=== PATIENT | male | born 1935 | race Caucasian/White ===

== ENCOUNTER 2017-07-29 13:33 | Emergency (ER) | payer MEDICARE, BC ==
[2016-02-19 13:44] VITALS: BMI 17.6
[~2017-07-29 13:33] MED LIST: FLOMAX0.4 MG PO; OMEPRAZOLE40 MG PO; PRILOSEC20 MG PO
[2017-07-29 14:33] LABS: BASOPHILS 0.2 % (0-2); EOSINOPHILS 0.1 % (0-7); HEMATOCRIT 34.9 % (42.0-54.0); HEMOGLOBIN 12.1 g/dL (13.5-17.5); IMMATURE GRANULOCYTES 0.3 % (0-5); LYMPHOCYTES 7.3 % (15-50); MCH 34.1 pg (26.0-34.0); MCHC 34.7 g/dL (31.0-37.0); MCV 98.3 fL (80.0-100.0); MEAN PLATELET VOLUME 10.3 fL (7.4-10.4); NEUTROPHILS 81.1 % (40-80); RBC 3.55 10x6/uL (4.20-6.10); RDW 13.1 % (11.5-14.5); WBC 12.4 10x3/uL (4.8-10.8)
[2017-07-29 14:34] LABS: PLATELET COUNT 141 10x3/uL (130-400)
[2017-07-29 14:48] LABS: APTT 36.8 SECONDS (22.8-39.4); INR 1.15 (0.85-1.17); PROTIME 14.6 SECONDS (11.6-15.0)
[2017-07-29 14:55] LABS: ALKALINE PHOSPHATASE 73 U/L (46-116); ALT (SGPT) 22 U/L (10-68); BILIRUBIN - TOTAL 0.91 mg/dL (0.2-1.3); CALCIUM 8.9 mg/dL (8.5-10.1); CARBON DIOXIDE 27.3 mmol/L (21.0-32.0); CHLORIDE - SERUM 98 mmol/L (98-107); POTASSIUM - SERUM 3.7 mmol/L (3.5-5.1); PROTEIN - SERUM 6.5 g/dL (6.4-8.2); SODIUM 135 mmol/L (136-145); UREA NITROGEN 23 mg/dL (7-18); eGFR NON AFRICAN AMERICAN 76 mL/min (90-120)
[2017-07-29 14:58] LABS: ALBUMIN 3.4 g/dL (3.4-5.0); CALC OSMOLALITY 277 mosm/kg (275-300); GLUCOSE 169 mg/dL (74-106)
[2017-07-29 17:32] LABS: APPEARANCE CLEAR (CLEAR); BILIRUBIN NEGATIVE (NEGATIVE); COLOR YELLOW (YELLOW); GLUCOSE NEGATIVE (NEGATIVE); KETONE NEGATIVE (NEGATIVE); LEUKOCYTE ESTERASE NEGATIVE (NEGATIVE); NITRITE NEGATIVE (NEGATIVE); PROTEIN NEGATIVE (NEGATIVE); UROBILINOGEN NORMAL (NORMAL)
== END 2017-07-29 19:14 | disposition other institution (70) ==
LOC: D.ER 13:33
PROVIDERS: Emergency Medicine
DX: I74.8 Embolism and thrombosis of other arteries (principal); I73.9 Peripheral vascular disease, unspecified; F17.200 Nicotine dependence, unspecified, uncomplicated; M79.605 Pain in left leg; M79.604 Pain in right leg

== ENCOUNTER 2017-09-23 11:09 | Emergency (ER) | payer MEDICARE, BC ==
[2016-02-19 13:44] VITALS: BMI 17.6
[2017-09-23] MEDS ORDERED: ULTRAM50 MG PO (16:56)
[2017-09-23] MEDS ORDERED: HYDROCODON-ACE1 EAC7 PO (16:57)
[2017-09-23] MEDS ORDERED: NAPROSYN500 MG PO (16:58)
[2017-09-23] MEDS ORDERED: FLOMAX0.4 MG PO (16:58)
== END 2017-09-23 12:26 | disposition home or self-care (01) ==
LOC: D.ER 11:09
DX: M54.5 Low back pain (principal)

== ENCOUNTER 2017-09-23 16:20 | Inpatient (IN) | payer MEDICARE, BC ==
[~2017-09-23] VITALS: Ht 170.2 cm; Wt 44.5 kg
[2017-09-23] MEDS ORDERED: ULTRAM50 MG PO (16:56)
[2017-09-23] MEDS ORDERED: HYDROCODON-ACE1 EAC7 PO (16:57)
[2017-09-23] MEDS ORDERED: FLOMAX0.4 MG PO (16:58)
[2017-09-23] MEDS ORDERED: NAPROSYN500 MG PO (16:58)
[2017-09-23 17:00] VITALS: BP 121/66; BMI 15.5
[2017-09-23 17:05] LABS: BASOPHILS 0.1 % (0-2); EOSINOPHILS 0 % (0-7); HEMATOCRIT 39.5 % (42.0-54.0); HEMOGLOBIN 13.2 g/dL (13.5-17.5); IMMATURE GRANULOCYTES 0.3 % (0-5); LYMPHOCYTES 3.3 % (15-50); MCH 32.8 pg (26.0-34.0); MCHC 33.4 g/dL (31.0-37.0); MEAN PLATELET VOLUME 11.2 fL (7.4-10.4); MONOCYTES 1.8 % (2-11); NEUTROPHILS 94.5 % (40-80); RBC 4.03 10x6/uL (4.20-6.10); RDW 15.6 % (11.5-14.5); WBC 11.3 10x3/uL (4.8-10.8)
[2017-09-23 17:15] LABS: PLATELET COUNT 204 10x3/uL (130-400)
[2017-09-23 18:19] LABS: ERYTHROCYTE SEDIMENTATION RATE 14 mm/hr (0-20)
[2017-09-23 18:49] LABS: ALBUMIN 3.7 g/dL (3.4-5.0); ANION GAP 16.7 mmol/L (8-16); BILIRUBIN - TOTAL 1.04 mg/dL (0.2-1.3); CALCIUM 9.1 mg/dL (8.5-10.1); CREATININE - SERUM 1.1 mg/dL (0.6-1.3); POTASSIUM - SERUM 3.7 mmol/L (3.5-5.1); PROTEIN - SERUM 6.7 g/dL (6.4-8.2); THYROID STIMULATING HORMONE 1.48 uIU/mL (0.36-3.74)
[2017-09-23 20:00] VITALS: BP 134/70
--- NOTE | 2017-09-23 20:44 | NUR ---
PATIENT RESTING IN BED AND DENIES NEEDS AT THIS TIME. RODRICK ALEXANDER SITED THE PATIENT'S IV WITH A 20G IN THE RIGHT UPPER ARM ON THE FIRST ATTEMPT. BED IN LOWEST POSITION AND CALL LIGHT WITHIN REACH. ENCOURAGED THE PATIENT TO CALL IF HE HAS NEEDS.
[2017-09-24] VITALS: BP 146/72
[2017-09-24 04:00] VITALS: BP 140/68
--- NOTE | 2017-09-24 04:00 | NUR ---
SPOKE WITH ANGELA PNEUMATIC DRUM SANDER ABOUT PULLING 8140 [address]RIUM
[2017-09-24 06:03] LABS: BASOPHILS 0 % (0-2); EOSINOPHILS 0.1 % (0-7); HEMATOCRIT 36.5 % (42.0-54.0); HEMOGLOBIN 12.3 g/dL (13.5-17.5); IMMATURE GRANULOCYTES 0.3 % (0-5); LYMPHOCYTES 18.3 % (15-50); MCH 32.8 pg (26.0-34.0); MCHC 33.7 g/dL (31.0-37.0); MCV 97.3 fL (80.0-100.0); MEAN PLATELET VOLUME 11.3 fL (7.4-10.4); MONOCYTES 11.3 % (2-11); PLATELET COUNT 207 10x3/uL (130-400); RBC 3.75 10x6/uL (4.20-6.10); RDW 15.5 % (11.5-14.5); WBC 9.4 10x3/uL (4.8-10.8)
[2017-09-24 06:12] LABS: CALC OSMOLALITY 293 mosm/kg (275-300); CARBON DIOXIDE 28.9 mmol/L (21.0-32.0); CHLORIDE - SERUM 104 mmol/L (98-107); CREATININE - SERUM 0.9 mg/dL (0.6-1.3); POTASSIUM - SERUM 3.5 mmol/L (3.5-5.1); SODIUM 141 mmol/L (136-145); UREA NITROGEN 50 mg/dL (7-18); eGFR NON AFRICAN AMERICAN 85 mL/min (90-120)
[2017-09-24 06:23] LABS: GLUCOSE 104 mg/dL (74-106)
[2017-09-24 08:36] VITALS: BP 142/67
--- NOTE | 2017-09-24 10:38 | NUR ---
PT CONFUSED AOX1 RESP EVEN AND NONLABORED PT DENIES NEEDS AT THIS TIME IV TO LEFT FOREARM PATENT AND INTACT AT THIS TIME SRX2 BED AT LOWEST SETTING CALL LIGHT WITHIN REACH WILL CONTINUE TO MONITOR
--- NOTE | 2017-09-24 11:02 | NUR ---
DR. SAVAGE REVIEWED FILMS, RECORD, AND PATIENT SYMPTOMS AND IS SCHEDULING PATIENT FOR A PROCEDURE ON FRIDAY AND VOICED TO PCP, CM, AND MYSELF TO CANCEL MRI THAT WAS ORDERED BY DR. LYON. DR. LYON NOTIFIED OF DR. SAVAGE REQUEST AND STATES IF HE FEELS COMFORTABLE WITH THE CT RESULTS THEN HE IS FINE CANCELLING MRI.
[2017-09-24 12:46] VITALS: Ht 170.2 cm; Wt 44.5 kg
--- NOTE | 2017-09-24 14:05 | NUR ---
Rehab Prescreening Consult recieved and the chart has been reviewed. He is scheduled for a Khypoplasty on Friday. Rehab will follow to see how he progresses with therapy post-op and medical necessity to meet criteria for IRF. Discussed with the CM Silva Harris. Maryjane Purvis RN Clinical Liaison, Rehab
[2017-09-24 14:20] VITALS: BP 119/54
[2017-09-24 16:23] VITALS: BP 128/55
--- NOTE | 2017-09-24 18:11 | NUR ---
OT NOTE: PT COMPLETED GROOMING AND HYGIENE TASK WITH MIN A/CGA. PT REQUIRES CUES FOR INCREASED SAFETY. THANK YOU, CAIN ROJAS/Hamilton
[2017-09-24 20:00] VITALS: BP 113/52
--- NOTE | 2017-09-24 22:02 | NUR ---
REC'D LYING IN BED. ALERT AND ORIENTED X2. DENIED PAIN AT THIS TIME. DENIED NEEDS AT THIS TIME. INSTRUCTED TO CALL IF NEEDED ANYTHING, VERBALIZED UNDERSTANDING. BED LOW, LOCKED CALL LIGHT IN REACH, ALARM ON.
[2017-09-25] VITALS: BP 138/62
--- NOTE | 2017-09-25 02:00 | NUR ---
PT IN BED WITH NO DISTRESS. RESPIRATIONS EVEN AND UNLABORED. SIDE RAILS X 2. BED LOW. CALL LIGHT IN REACH.
[2017-09-25 04:50] LABS: BASOPHILS 0.1 % (0-2); EOSINOPHILS 0.4 % (0-7); HEMATOCRIT 38.2 % (42.0-54.0); HEMOGLOBIN 12.9 g/dL (13.5-17.5); IMMATURE GRANULOCYTES 0.3 % (0-5); LYMPHOCYTES 14.3 % (15-50); MCH 32.9 pg (26.0-34.0); MCHC 33.8 g/dL (31.0-37.0); MCV 97.4 fL (80.0-100.0); MEAN PLATELET VOLUME 11.7 fL (7.4-10.4); NEUTROPHILS 76.9 % (40-80); PLATELET COUNT 211 10x3/uL (130-400); RBC 3.92 10x6/uL (4.20-6.10); RDW 15.5 % (11.5-14.5); WBC 11.7 10x3/uL (4.8-10.8)
[2017-09-25 05:09] LABS: CALC OSMOLALITY 294 mosm/kg (275-300); CALCIUM 8.8 mg/dL (8.5-10.1); CHLORIDE - SERUM 106 mmol/L (98-107); CREATININE - SERUM 0.9 mg/dL (0.6-1.3); GLUCOSE 104 mg/dL (74-106); POTASSIUM - SERUM 3.2 mmol/L (3.5-5.1); SODIUM 142 mmol/L (136-145); UREA NITROGEN 46 mg/dL (7-18); eGFR NON AFRICAN AMERICAN 85 mL/min (90-120)
--- NOTE | 2017-09-25 08:00 | NUR ---
PATIENT IS RESTING IN BED WITH EYES CLOSED. AWAKENS TO VERBAL STIMULI. PATIENT IS ALERT AND ORIENTED X4. PATIENT IS [place] AND WEARS A HEARING AID. NO COMPLAINTS OF PAIN AT PRESENT TIME. ASSESSMENT COMPLETED. SEE FLOWSHEET FOR ANY DETAILS. PATIENT DENIES ANY NEEDS AT PRESENT TIME. CALL LIGHT IN PATIENT'S REACH. WILL MONITOR PATIENT FOR ANY NEEDS.
[2017-09-25 09:07] VITALS: BP 159/79
--- NOTE | 2017-09-25 11:50 | NUR ---
OT NOTE: PT LIEING IN BED ON SIDE. PT REQUESTED TO REST. FRIEND AT BEDSIDE. REPORTED THAT ALL PT NEEDS IS CONTINUAL FOOD AND DRINK.. HE STATES THAT PT JUST NEEDS TO REST, DOESNT NEED TO GET UP DUE TO SURGERY TOMORROW.. HE DID REPORT THAT PTS SON IS COMING IN TONIGHT FROM [place]. WILL ATTEMPT EXS IN PM
[2017-09-25 12:51] VITALS: BP 148/64
--- NOTE | 2017-09-25 14:27 | NUR ---
PATIENT RESTING ON HIS BACK. EYES ARE CLOSED. SNORING NOTED. NO S/S OF DISTRESS NOTED. CALL LIGHT IN PATIENT'S REACH. SCD'S IN PLACE TO PATIENT'S BILATERAL LOWER EXTREMITIES. WILL CONTINUE TO MONITOR PATIENT FOR ANY NEEDS.
[2017-09-25 17:07] VITALS: BP 145/64
--- NOTE | 2017-09-25 19:15 | NUR ---
RECEIVED CARE FROM DAY NURSE. PT LYING IN BED ON SIDE. RESP EVEN AND UNLABORED. MARLYN ALARM IN PLACE. CALL LIGHT AT SIDE.
[2017-09-25 20:00] VITALS: BP 105/55
[2017-09-26] VITALS (12 sets, daily range): BP systolic 111–150; BP diastolic 57–81
[2017-09-26 01:20] LABS: APPEARANCE CLEAR (CLEAR); BILIRUBIN NEGATIVE (NEGATIVE); COLOR YELLOW (YELLOW); GLUCOSE NEGATIVE (NEGATIVE); KETONE NEGATIVE (NEGATIVE); NITRITE NEGATIVE (NEGATIVE); PROTEIN NEGATIVE (NEGATIVE); UROBILINOGEN NORMAL (NORMAL)
--- NOTE | 2017-09-26 03:09 | NUR ---
EYES CLOSED RESPIRATIONS WITH EASE AND UNLABORED. SR UP X2 CALL LIGHT WITHIN REACH.
[2017-09-26 06:35] LABS: BASOPHILS 0.1 % (0-2); EOSINOPHILS 0.4 % (0-7); HEMOGLOBIN 12.1 g/dL (13.5-17.5); IMMATURE GRANULOCYTES 0.3 % (0-5); LYMPHOCYTES 12.2 % (15-50); MCH 33.1 pg (26.0-34.0); MCHC 33.6 g/dL (31.0-37.0); MCV 98.4 fL (80.0-100.0); MEAN PLATELET VOLUME 11.7 fL (7.4-10.4); MONOCYTES 9.2 % (2-11); NEUTROPHILS 77.8 % (40-80); PLATELET COUNT 192 10x3/uL (130-400); RBC 3.66 10x6/uL (4.20-6.10); RDW 15.6 % (11.5-14.5); WBC 13.6 10x3/uL (4.8-10.8)
[2017-09-26 06:50] LABS: CALC OSMOLALITY 294 mosm/kg (275-300); CALCIUM 8.7 mg/dL (8.5-10.1); CARBON DIOXIDE 27.1 mmol/L (21.0-32.0); CHLORIDE - SERUM 108 mmol/L (98-107); CREATININE - SERUM 0.7 mg/dL (0.6-1.3); GLUCOSE 109 mg/dL (74-106); POTASSIUM - SERUM 3.6 mmol/L (3.5-5.1); SODIUM 143 mmol/L (136-145); UREA NITROGEN 37 mg/dL (7-18); eGFR NON AFRICAN AMERICAN > 90 mL/min (90-120)
--- NOTE | 2017-09-26 07:44 | NUR ---
AWAKE AND ALERT. ORIENTED TO SELF. LUNGS ARE CLEAR BILATERALLY, NO COUGH NOTED. SKIN IS INTACT WITHOUT REDNESS. SL TO RIGHT UPPER ARM PATNET WITHOUT REDNESS AT INSERTION SITE. DENIES NEEDS.
--- NOTE | 2017-09-26 09:03 | NUR ---
Patient Name: GALINA NEVES Admission Status: Urgent Accout number: [id number] Admission Date: 09-23-2017 : 1933 Admission Diagnosis:DORSALGIA, UNSPECIFIED Attending: ANABELLA HERZOG Current LOS: 3 Anticipated DC Date: Planned Disposition: Inpatient Rehab Primary Insurance: MEDICARE A & B Discharge Planning Comments: CM met with patient's son, Holly to assess discharge planning needs. Holly's son stated that his dad has been independent with his ADL's prior to this hospitalization. He has fallen a few times, and would like him to do inpatient rehab to get stronger prior to going home. Patient has stairs in his home. He has a wheelchair, shower chair, and cane. CM will continue to follow and assist with discharge planning needs. PCP: Emmanuel Holly (son) [phone] Jefry Neves (son) [phone] () [phone] Optical Brightener Maker Helper: Ana Luisa Harris * Is the patient Alert and Oriented? Yes 0 * How many steps to enter\exit or inside your home? 10 0 * PCP EMMANUEL 0 * Pharmacy [facility] 0 * Preadmission Environment Home Alone 0 * ADLs Independent 0 * Equipment Cane Shower Chair Wheelchair 0 * List name and contact numbers for known caregivers / representatives who currently or will assist patient after discharge: HOLLY (SON) 0 * Community resources currently utilized None 0 * Additional services required to return to the preadmission environment? Yes 0 * Can the patient safely return to the preadmission environment? No 0 * Has this patient been hospitalized within the prior 30 days at any hospital? No 0 Grand Total: 0
--- NOTE | 2017-09-26 10:00 | NUR ---
RESTING QUIETLY WITH EYES CLOSED. SON AT BEDSIDE.
--- NOTE | 2017-09-26 11:00 | NUR ---
INCONTINENT OF URINE AND SMALL AMOUNT OF STOOL. SKIN CARE PER STAFF. LINENS CHANGED. NO NEEDS NOTED.
--- NOTE | 2017-09-26 11:44 | NUR ---
OFF UNIT VIA BED FOR SURGERY.
--- NOTE | 2017-09-26 12:28 | NUR ---
NUTRITION F/U CHART REVIEWED. PT OOR FOR PROCEDURE. HAS BEEN TOLERATING REG DIET WITH ENSURE PRIOR TO CURRENT NPO STATUS. WILL PROVIDE DIET AND ENSURE WHEN RESUMED, MONITOR PO INTAKE. RD FOLLOWING
--- NOTE | 2017-09-26 14:50 | NUR ---
RETURNED FROM SURGERY. DRESSING TO MID BACK DRY AND INTACT. FAMILY IN ROOM. DENIES NEEDS.
--- NOTE | 2017-09-26 18:27 | NUR ---
RESTING WITH EYES CLOSED. VSS. SON HERE. NO NEEDS NOTED.
--- NOTE | 2017-09-26 21:10 | NUR ---
SNACK APPLE SAUCE GIVEN.
--- NOTE | 2017-09-26 23:28 | NUR ---
REST QUIETLY IN BED.CALL LIGHT IN REACH.
--- NOTE | 2017-09-27 01:32 | NUR ---
REST IN BED, BED LOW, CALL LIGHT IN REACH.
--- NOTE | 2017-09-27 02:37 | NUR ---
ASSESSED, PT IS RESTING QUIET IN BED WITH BED ALARM IN PLACE. HE IS AWAKE AND HAS TAKEN HIS GOWN OFF BUT DID NOT WANT TO PUT IT BACK ON. COVERED WITH A SHEET. THE BED IS LOW, RAILS UP X'S 2 WITH THE CALL LIGHT AT HAND.
[2017-09-27 04:00] VITALS: BP 154/87
--- NOTE | 2017-09-27 04:36 | NUR ---
REST IN BED QUIETLY, EYE CLOSE, BED LOW.
[2017-09-27 05:13] LABS: BASOPHILS 0.1 % (0-2); EOSINOPHILS 0 % (0-7); HEMOGLOBIN 11.2 g/dL (13.5-17.5); IMMATURE GRANULOCYTES 0.3 % (0-5); LYMPHOCYTES 5.9 % (15-50); MCH 32.8 pg (26.0-34.0); MCHC 32.9 g/dL (31.0-37.0); MCV 99.7 fL (80.0-100.0); MEAN PLATELET VOLUME 11.6 fL (7.4-10.4); NEUTROPHILS 86.7 % (40-80); PLATELET COUNT 180 10x3/uL (130-400); RBC 3.41 10x6/uL (4.20-6.10); RDW 15.7 % (11.5-14.5); WBC 14.9 10x3/uL (4.8-10.8)
[2017-09-27 05:29] LABS: CALC OSMOLALITY 298 mosm/kg (275-300); CALCIUM 8.6 mg/dL (8.5-10.1); CARBON DIOXIDE 24.6 mmol/L (21.0-32.0); CHLORIDE - SERUM 111 mmol/L (98-107); GLUCOSE 130 mg/dL (74-106); SODIUM 145 mmol/L (136-145); UREA NITROGEN 35 mg/dL (7-18)
[2017-09-27 05:37] LABS: CREATININE - SERUM 0.5 mg/dL (0.6-1.3); POTASSIUM - SERUM 4.3 mmol/L (3.5-5.1); eGFR NON AFRICAN AMERICAN > 90 mL/min (90-120)
--- NOTE | 2017-09-27 08:12 | NUR ---
AWAKE AND ALERT. ORIENTED TO SELF ONLY. ATTEMPTS TO REORIENT WITH ONLY SHORT TERM SUCCESS. LUNGS ARE CLEAR BILATERALLY, NO COUGH NOTED. SKIN IS INTACT WITHOUT REDNESS EXCEPT SMALL INCISION WITH DRY DRESSING TO LOWER BACK. IV TO RIGHT UPPER ARM IS PATNET WITHOUT REDNESS AT INSERTION SITE. NO NEEDS NOTED.
[2017-09-27 09:38] VITALS: BP 123/66
--- NOTE | 2017-09-27 10:44 | NUR ---
INCONTINENT OF SMALL AMOUNT OF STOOL. SKIN CARE PER STAFF. LINENS CHANGED.
--- NOTE | 2017-09-27 13:00 | NUR ---
ATE ABOUT 25% OF LUNCH WITH STAFF ASSIST.
[2017-09-27 13:41] VITALS: BP 126/64
--- NOTE | 2017-09-27 14:44 | NUR ---
INCONTINENT OF URINE. SKIN CARE PER STAFF. LINENS CHANGED. REPOSTIONED IN BED FOR COMFORT.
[2017-09-27 15:51] VITALS: BP 124/68
--- NOTE | 2017-09-27 18:38 | NUR ---
ASSISTED WITH SUPPER PER STAFF. ATE ABOUT 25%. DENIES NEEDS. NO CHANGES NOTED.
--- NOTE | 2017-09-27 19:17 | NUR ---
LATE ENTRY 1400 TC TO REHAB SCREENERISAIAH. SHE WILL REVIEW PATIENT'S THERAPY NOTES AND START HIS SCREEN. SHE WILL ADVISE CM ON FRIDAY REGARDING ADMISSION TO [facility].
--- NOTE | 2017-09-27 19:36 | NUR ---
PT IS LYING IN BED TRYING TO USE URINAL, ASKED PT IF ASSISTANCE WAS NEEDED AND PT STATED NO, CONTINUED TO HELP PT WITH URINAL AND CAN HEAR PT BREATHING, LISTENED TO PT. PT AHS EXPIRATORY WHEEZES AND CRACKLING WITH INHALATION, ENCOURAGED PT TO COUGH, REPOSITIONED PT AND BREATHING SOUNDED BETTER, NO OTHER SIGNS OF DISTRESS AT THIS TIME, CONTINUE WITH PLAN PF CARE
[2017-09-27 20:00] VITALS: BP 140/68
--- NOTE | 2017-09-27 23:33 | NUR ---
RESTLESS, DENIES NEEDS, NO DISTRESS NOTED, CALL LIGHT IN REACH, WILL CONTINUE TO MONITOR
[2017-09-28 04:00] VITALS: BP 132/66
[2017-09-28 05:28] LABS: BASOPHILS 0.1 % (0-2); EOSINOPHILS 0.1 % (0-7); HEMATOCRIT 31.9 % (42.0-54.0); HEMOGLOBIN 10.5 g/dL (13.5-17.5); IMMATURE GRANULOCYTES 0.3 % (0-5); LYMPHOCYTES 9.7 % (15-50); MCH 32.2 pg (26.0-34.0); MCHC 32.9 g/dL (31.0-37.0); MCV 97.9 fL (80.0-100.0); MEAN PLATELET VOLUME 11.8 fL (7.4-10.4); MONOCYTES 9.6 % (2-11); NEUTROPHILS 80.2 % (40-80); PLATELET COUNT 188 10x3/uL (130-400); RBC 3.26 10x6/uL (4.20-6.10); RDW 15.5 % (11.5-14.5); WBC 14.4 10x3/uL (4.8-10.8)
[2017-09-28 05:57] LABS: CALC OSMOLALITY 302 mosm/kg (275-300); CALCIUM 8.3 mg/dL (8.5-10.1); CARBON DIOXIDE 25.7 mmol/L (21.0-32.0); CHLORIDE - SERUM 114 mmol/L (98-107); CREATININE - SERUM 0.7 mg/dL (0.6-1.3); GLUCOSE 111 mg/dL (74-106); POTASSIUM - SERUM 4.4 mmol/L (3.5-5.1); SODIUM 148 mmol/L (136-145); UREA NITROGEN 34 mg/dL (7-18); eGFR NON AFRICAN AMERICAN > 90 mL/min (90-120)
--- NOTE | 2017-09-28 08:00 | NUR ---
AROUSES TO VERBAL STIMULATION. ORIENTED TO SELF ONLY. LUNGS HAVE FAINT CRACKLES THROUGHOUT LUNG VILLA OCCASSIONAL DRY COUGH NOTED. SKIN IS INTACT WITHOUT REDNESS. SL TO RIGHT UPPER ARM IS PATNET WITHOUT REDNESS AT INSERTION SITE. NO NEEDS NOTED. HEARING AID REPLACED IN RIGHT EAR.
[2017-09-28 08:15] VITALS: BP 126/61
--- NOTE | 2017-09-28 09:45 | NUR ---
AMBULATED IN HALLWAY WITH PT. NO C/O INCREASED PAIN WITH ACTIVITY.
[2017-09-28 12:41] VITALS: BP 135/52
--- NOTE | 2017-09-28 13:37 | NUR ---
PAMELLA SPOKE WITH ISAIAH THE REHAB SCREENER ON FRIDAY. SHE STATED SHE WILL BE FOLLOWING UP ON THIS PATIENT. AWAIT COMPLETION OF HIS SCREEN. PLAN FOR ADMISSION TO ACUTE REHAB TODAY. DR ISBELL AND DR BARR SPOKE W/ PAMELLA ON THEIR. ADVISED THEM WE ARE EXPECTING DISCHARGE TO ACUTE REHAB TODAY. NO UPDATED REHAB NOTE AT THIS TIME.
[2017-09-28] MEDS ORDERED: STADOL IM (14:29)
[2017-09-28] MEDS ORDERED: HYDROCODON-ACE1 EAC7 PO (14:31)
[2017-09-28] MEDS ORDERED: LIBRIUM25 MG PO (14:31)
[2017-09-28] MEDS ORDERED: ZOFRAN4 MG PO (14:32)
--- NOTE | 2017-09-28 15:46 | NUR ---
PATIENT HAS BEEN ACCEPTED TO [facility] THIS PM PER ISAIAH. CM ADVISED PRIMARY NURSE, YENNIFER.
--- NOTE | 2017-09-28 15:59 | NUR ---
REPORT CALLED TO ISI STINSON ON REHAB. PATIENT WILL D/C TO REHAB VIA WC TO ROOM. 1104.
--- NOTE | 2017-09-28 16:23 | NUR ---
TRANSFERRED TO ROOM 1109 VIA . GLASSES AND COMPLETE HEARING AID WENT WITH ACOSTA.
[2017-09-29] MEDS ORDERED: LEVAQUIN500 MG PO (14:25)
[2017-09-29] MEDS ORDERED: IPRAT-ALBUT 0.5-3 ML UPD (14:27)
[2017-09-29] MEDS ORDERED: FLORAJEN3 CAPS460 MG PO (14:28)
== END 2017-09-28 16:23 | DRG 515 ==
LOC: D.MS 16:20
PROVIDERS: Emergency Medicine; Neurological Surgery; ADMIT Family Medicine
PROC: 0QU03JZ Supplement Lumbar Vertebra with Synthetic Substitute, Percutaneous Approach (ICD-10-PCS; 2017-09-26)
PROC: 0QS03ZZ Reposition Lumbar Vertebra, Percutaneous Approach (ICD-10-PCS; principal; 2017-09-26 10:50)
DX: S32.019A Unspecified fracture of first lumbar vertebra, initial encounter for closed fracture (principal); G93.41 Metabolic encephalopathy; R53.2 Functional quadriplegia; Z68.1 Body mass index [BMI] 19.9 or less, adult; E44.0 Moderate protein-calorie malnutrition; M54.9 Dorsalgia, unspecified; S32.029A Unspecified fracture of second lumbar vertebra, initial encounter for closed fracture; R63.4 Abnormal weight loss

== ENCOUNTER 2017-09-28 16:23 | Inpatient (IN) | payer MEDICARE, BC ==
[~2017-09-28] VITALS: Ht 170.2 cm; Wt 44.5 kg
[~2017-09-28 16:23] MED LIST changes: +HYDROCODON-ACE1 EAC7 PO; +LIBRIUM25 MG PO; +NAPROSYN500 MG PO; +STADOL IM; +ULTRAM50 MG PO; +ZOFRAN4 MG PO
[2017-09-28 22:43] VITALS: BP 126/84; BMI 18.5
[2017-09-29 06:07] LABS: BASOPHILS 0.2 % (0-2); EOSINOPHILS 0.2 % (0-7); HEMATOCRIT 32.7 % (42.0-54.0); HEMOGLOBIN 10.7 g/dL (13.5-17.5); IMMATURE GRANULOCYTES 0.4 % (0-5); LYMPHOCYTES 9.8 % (15-50); MCH 32.3 pg (26.0-34.0); MCHC 32.7 g/dL (31.0-37.0); MCV 98.8 fL (80.0-100.0); MONOCYTES 9.8 % (2-11); NEUTROPHILS 79.6 % (40-80); PLATELET COUNT 199 10x3/uL (130-400); RBC 3.31 10x6/uL (4.20-6.10); RDW 15.7 % (11.5-14.5); WBC 11.5 10x3/uL (4.8-10.8)
[2017-09-29 06:15] LABS: CALC OSMOLALITY 297 mosm/kg (275-300); CALCIUM 8.7 mg/dL (8.5-10.1); CARBON DIOXIDE 23.5 mmol/L (21.0-32.0); CHLORIDE - SERUM 112 mmol/L (98-107); CREATININE - SERUM 0.6 mg/dL (0.6-1.3); GLUCOSE 88 mg/dL (74-106); SODIUM 148 mmol/L (136-145); UREA NITROGEN 26 mg/dL (7-18); eGFR NON AFRICAN AMERICAN > 90 mL/min (90-120)
[2017-09-29 06:16] LABS: POTASSIUM - SERUM 3.4 mmol/L (3.5-5.1)
[2017-09-29 09:04] VITALS: Ht 170.2 cm; Wt 44.5 kg
[2017-09-29 09:14] VITALS: BP 146/69
--- NOTE | 2017-09-29 12:07 | RHP ---
PATIENT: GALINA BAILEY MEDICAL RECORD: [id number] ACCOUNT: [id number] LOCATION:[facility]9 : 33 ADMISSION DATE: 09/28/17 REHABILITATION HISTORY AND PHYSICAL EXAMINATION POST ADMISSION PHYSICIAN EXAMINATION Post-Admission Physical Examination and History and Physical DATE OF ADMISSION: 09/28/2017 ADMITTING DIAGNOSIS: Acute metabolic encephalopathy. HISTORY OF PRESENT ILLNESS: The patient admitted to inpatient rehab for a neurological condition, acute metabolic encephalopathy. He is an 82-year-old gentleman who sustained a fall approximately 2 weeks prior to his acute hospitalization on 09/23/2017, he is admitted for intractable back pain. He had a consult per neurology and neurosurgery and underwent kyphoplasty at L1-L2 secondary to compression fractures. He has been found to be malnourished and has been receiving IV nourishment. He had AAA repair in the past. Otherwise, he was fairly healthy. He has had some intermittent problems with low back pain for years, much worse in the last couple of weeks, unable to exactly figure out when it actually happened and he has had some falls, but was not able to lift the onset of pain with any type of particular event. He had no radiation of pain to his limbs or other associated hypesthesia or weakness. He has been unable to ambulate or pursue any other activity secondary to pain and subsequently has lost a lot of weight. The time of course once again is unsure. Admitted for MRI supportive care. MRI machine was not operative initially and CT of the C-spine demonstrated new L1-L2 compression fracture with fracture of the transverse process L2 also, but unable to aid. He hopefully will be able to do inpatient rehab and return back to his prior level of care better. COMORBIDITIES: Include pain status post lumbar kyphoplasty, acute fracture, acute intractable back pain, acute fall, protein-calorie malnutrition, chronic alcohol use, tobacco use, significant scoliosis, recent weight loss, L1-L2 compression fractures, [id number] multilevel degenerative disc disease and debility. PAST MEDICAL HISTORY: Significant for abdominal aortic aneurysm, tobacco use, and alcohol use. PAST SURGICAL HISTORY: Includes an AAA repair, and kyphoplasty. ALLERGIES: No known drug allergies. CURRENT MEDICATIONS: Include Protonix 40 mg daily, Flomax 0.4 at bedtime, Zofran p.r.n. nausea and vomiting, Stadol 1 mg every 6 hours p.r.n. severe pain. He is on [place] 10/325 one tab q.6 hours p.r.n. pain and Librium 25 mg q.6 hours. HABITS: No current alcohol or tobacco use. He does have a history of tobacco and alcohol use in the past. FAMILY HISTORY: Noncontributory. SOCIAL HISTORY: The patient once again would like to return home if possible. HISTORY AND PHYSICAL [id number] GALINA BAILEY REVIEW OF SYSTEMS: GENERAL: Does complain of some weakness. HEENT: Does complain of cold, cough, or congestion. CARDIOVASCULAR: Denies any chest pain. LUNGS: Does complain of shortness of breath. PHYSICAL EXAMINATION: VITAL SIGNS: Stable. He is afebrile. GENERAL: Elderly gentleman, in no acute distress, alert upon exam. HEENT: Normocephalic and atraumatic. Mucosa moist. NECK: Supple. No lymphadenopathy. LUNGS: Coarse breath sounds bilaterally. CARDIOVASCULAR: Regular rate and rhythm. ABDOMEN: Benign. EXTREMITIES: No clubbing, cyanosis or edema. NEUROLOGIC: Seems intact supratentorial, but he does have some noted weakness on his extremities. LABORATORY DATA: His white count is 11.5, H&H 10.7 and 32.7 and platelet count is 199. Sodium 148, potassium 3.4, BUN and creatinine 26 and 0.6 and blood sugar is noted to be 88. ASSESSMENT: This is an 82-year-old gentleman admitted to the rehab with a working diagnoses of acute metabolic encephalopathy secondary to malnutrition and also lumbar compression fracture. The patient has potential to make improvement. We will institute the following multidisciplinary therapies including to, but not limited to physical, occupational, respiratory, speech, nutritional services, prosthetics and orthotics. Given his complex medical condition, risk of further medical complications, rehabilitation services cannot be provided at a low level of care such as a shelter facility. PLAN: 1. Admit to [facility] rehab for intensive inpatient therapy to include the following disciplines: A. Physical therapy to improve gait, all transfer skills and bed mobility to a modified independent level. B. Occupational therapy to improve activities of daily living to a modified independent level. C. Case management to assist with discharge planning and placement options. D. Nutrition to assist with nutritional needs. E. Rehabilitation nursing to assist in monitoring the patient's underlying medical conditions and to assist with any type of bowel or bladder management. 2. The patient's current medication and medical care will be continued. 3. The patient will be placed on standard fall precautions. 4. The patient's estimated length of stay is approximately 7-10 days. 5. Discuss this patient during care team staff meeting this week. We will have nutrition follow closely with him and hopefully get his nutritional status stable prior to going home. TRANSINT:[id number] Voice Confirmation ID: [id number] DOCUMENT ID: [id number] RITESH notes whether there has been none or any medical/functional change since admission: HISTORY AND PHYSICAL [id number] GALINA BAILEY - No change since pre-admission screen. RITESH attests patient continues to be appropriate for IRF: - Continues to be appropriate. RUKHSANA CORONA MD at 1207 CC: [id number] DICTATION DATE: 09/29/1708 MACHINE CHAIN MAKER: 09/29/17 0915 ADM IN [place] [id number] [place] [address]
[2017-09-29] MEDS ORDERED: LEVAQUIN500 MG PO (14:25)
[2017-09-29] MEDS ORDERED: IPRAT-ALBUT 0.5-3 ML UPD (14:27)
[2017-09-29] MEDS ORDERED: FLORAJEN3 CAPS460 MG PO (14:28)
== END 2017-09-29 15:14 | disposition short-term general hospital (02) | DRG 70 ==
LOC: D.REHAB 16:23 → D.M2 09-29 15:07 → D.REHAB 09-29 15:07 → D.M2 09-29 15:07 → D.REHAB 09-29 15:14
PROVIDERS: ADMIT Emergency Medicine
DX: G93.41 Metabolic encephalopathy (principal); R53.2 Functional quadriplegia; J18.9 Pneumonia, unspecified organism; E46 Unspecified protein-calorie malnutrition; S32.019A Unspecified fracture of first lumbar vertebra, initial encounter for closed fracture; S32.029A Unspecified fracture of second lumbar vertebra, initial encounter for closed fracture; S27.0XXA Traumatic pneumothorax, initial encounter; Z72.89 Other problems related to lifestyle; Z72.0 Tobacco use; M51.36 Other intervertebral disc degeneration, lumbar region; R53.81 Other malaise; W19.XXXA Unspecified fall, initial encounter; I71.4 Abdominal aortic aneurysm, without rupture; R13.10 Dysphagia, unspecified

== ENCOUNTER 2017-09-29 15:20 | Inpatient (IN) | payer MEDICARE, BC ==
[~2017-09-29] VITALS: Ht 170.2 cm; Wt 44.8 kg
[~2017-09-29 15:20] MED LIST changes: +FLORAJEN3 CAPS460 MG PO; +IPRAT-ALBUT 0.5-3 ML UPD; +LEVAQUIN500 MG PO
[2017-09-29 15:22] VITALS: BP 119/69; BMI 15.9
[2017-09-29 16:00] VITALS: BP 120/55
[2017-09-29 20:11] VITALS: BP 128/61
[2017-09-30 00:42] VITALS: BP 129/54
[2017-09-30 04:24] VITALS: BP 177/77
[2017-09-30 08:16] VITALS: BP 164/75
[2017-09-30 12:14] VITALS: BP 157/78
[2017-09-30 13:43] LABS: BASOPHILS 0.4 % (0-2); EOSINOPHILS 0.2 % (0-7); HEMATOCRIT 34.2 % (42.0-54.0); IMMATURE GRANULOCYTES 0.6 % (0-5); LYMPHOCYTES 11.3 % (15-50); MCH 32.4 pg (26.0-34.0); MCHC 32.2 g/dL (31.0-37.0); MEAN PLATELET VOLUME 11.7 fL (7.4-10.4); MONOCYTES 12.5 % (2-11); PLATELET COUNT 183 10x3/uL (130-400); RBC 3.39 10x6/uL (4.20-6.10); RDW 15.6 % (11.5-14.5); WBC 9.7 10x3/uL (4.8-10.8)
[2017-09-30 13:46] LABS: MCV 100.9 fL (80.0-100.0)
[2017-09-30 14:12] LABS: CALC OSMOLALITY 309 mosm/kg (275-300); CALCIUM 8.5 mg/dL (8.5-10.1); CARBON DIOXIDE 20.9 mmol/L (21.0-32.0); CHLORIDE - SERUM 113 mmol/L (98-107); CREATININE - SERUM 0.7 mg/dL (0.6-1.3); GLUCOSE 76 mg/dL (74-106); POTASSIUM - SERUM 3.4 mmol/L (3.5-5.1); SODIUM 153 mmol/L (136-145); UREA NITROGEN 32 mg/dL (7-18); eGFR NON AFRICAN AMERICAN > 90 mL/min (90-120)
[2017-09-30 14:51] VITALS: Ht 170.2 cm; Wt 44.8 kg
[2017-09-30 14:52] VITALS: BP 140/78
[2017-09-30 20:06] VITALS: BP 142/61
[2017-10-01 00:45] VITALS: BP 127/46
[2017-10-01 05:09] LABS: BASOPHILS 0.6 % (0-2); EOSINOPHILS 0.5 % (0-7); HEMATOCRIT 32.3 % (42.0-54.0); HEMOGLOBIN 10.5 g/dL (13.5-17.5); IMMATURE GRANULOCYTES 0.8 % (0-5); LYMPHOCYTES 11.8 % (15-50); MCH 32.3 pg (26.0-34.0); MCHC 32.5 g/dL (31.0-37.0); MCV 99.4 fL (80.0-100.0); MEAN PLATELET VOLUME 11.8 fL (7.4-10.4); MONOCYTES 12.3 % (2-11); PLATELET COUNT 188 10x3/uL (130-400); RBC 3.25 10x6/uL (4.20-6.10); RDW 15.6 % (11.5-14.5); WBC 7.8 10x3/uL (4.8-10.8)
[2017-10-01 05:11] VITALS: BP 136/91
[2017-10-01 05:21] LABS: CALC OSMOLALITY 309 mosm/kg (275-300); CALCIUM 8.3 mg/dL (8.5-10.1); CARBON DIOXIDE 21.8 mmol/L (21.0-32.0); CHLORIDE - SERUM 115 mmol/L (98-107); CREATININE - SERUM 0.7 mg/dL (0.6-1.3); POTASSIUM - SERUM 3.4 mmol/L (3.5-5.1); SODIUM 155 mmol/L (136-145); UREA NITROGEN 26 mg/dL (7-18); eGFR NON AFRICAN AMERICAN > 90 mL/min (90-120)
[2017-10-01 05:23] LABS: GLUCOSE 70 mg/dL (74-106)
[2017-10-01 08:15] VITALS: BP 163/68
[2017-10-01 12:14] VITALS: BP 167/66
[2017-10-01 16:02] VITALS: BP 141/64
[2017-10-01 16:23] LABS: BASOPHILS 0.9 % (0-2); EOSINOPHILS 0.3 % (0-7); HEMATOCRIT 35.3 % (42.0-54.0); HEMOGLOBIN 11.4 g/dL (13.5-17.5); IMMATURE GRANULOCYTES 0.8 % (0-5); LYMPHOCYTES 13.5 % (15-50); MCH 32.8 pg (26.0-34.0); MCHC 32.3 g/dL (31.0-37.0); MEAN PLATELET VOLUME 11.5 fL (7.4-10.4); MONOCYTES 12.5 % (2-11); PLATELET COUNT 183 10x3/uL (130-400); RBC 3.48 10x6/uL (4.20-6.10); RDW 15.6 % (11.5-14.5); WBC 6.4 10x3/uL (4.8-10.8)
[2017-10-01 16:52] LABS: MCV 101.4 fL (80.0-100.0)
[2017-10-01 17:05] LABS: ALBUMIN 2.8 g/dL (3.4-5.0); ALKALINE PHOSPHATASE 111 U/L (46-116); ALT (SGPT) 17 U/L (10-68); BILIRUBIN - TOTAL 0.51 mg/dL (0.2-1.3); CALC OSMOLALITY 304 mosm/kg (275-300); CALCIUM 8.4 mg/dL (8.5-10.1); CARBON DIOXIDE 21.6 mmol/L (21.0-32.0); CHLORIDE - SERUM 111 mmol/L (98-107); CREATININE - SERUM 0.7 mg/dL (0.6-1.3); GLUCOSE 81 mg/dL (74-106); POTASSIUM - SERUM 3.2 mmol/L (3.5-5.1); PROTEIN - SERUM 5.6 g/dL (6.4-8.2); SODIUM 152 mmol/L (136-145); UREA NITROGEN 25 mg/dL (7-18); eGFR NON AFRICAN AMERICAN > 90 mL/min (90-120)
[2017-10-01 21:09] VITALS: BP 146/62
[2017-10-02 01:59] VITALS: BP 140/59
[2017-10-02 05:54] VITALS: BP 154/64
[2017-10-02 06:18] LABS: BASOPHILS 0.7 % (0-2); EOSINOPHILS 1.1 % (0-7); HEMATOCRIT 33.9 % (42.0-54.0); HEMOGLOBIN 11.1 g/dL (13.5-17.5); IMMATURE GRANULOCYTES 0.9 % (0-5); LYMPHOCYTES 16.3 % (15-50); MCH 32.6 pg (26.0-34.0); MCHC 32.7 g/dL (31.0-37.0); MCV 99.4 fL (80.0-100.0); MEAN PLATELET VOLUME 11.8 fL (7.4-10.4); MONOCYTES 16.6 % (2-11); NEUTROPHILS 64.4 % (40-80); PLATELET COUNT 192 10x3/uL (130-400); RBC 3.41 10x6/uL (4.20-6.10); RDW 15.4 % (11.5-14.5)
[2017-10-02 06:27] LABS: CALC OSMOLALITY 300 mosm/kg (275-300); CALCIUM 8.5 mg/dL (8.5-10.1); CARBON DIOXIDE 24.4 mmol/L (21.0-32.0); CHLORIDE - SERUM 112 mmol/L (98-107); CREATININE - SERUM 0.8 mg/dL (0.6-1.3); GLUCOSE 100 mg/dL (74-106); POTASSIUM - SERUM 3.1 mmol/L (3.5-5.1); SODIUM 150 mmol/L (136-145); UREA NITROGEN 22 mg/dL (7-18); eGFR NON AFRICAN AMERICAN > 90 mL/min (90-120)
[2017-10-02 07:55] VITALS: BP 119/54
== END 2017-10-02 12:55 | disposition short-term general hospital (02) | DRG 64 ==
LOC: D.M2 15:20
PROVIDERS: Family Medicine Adult Medicine; ADMIT Emergency Medicine
DX: I63.9 Cerebral infarction, unspecified (principal); J18.9 Pneumonia, unspecified organism; G93.41 Metabolic encephalopathy; R53.2 Functional quadriplegia; E44.0 Moderate protein-calorie malnutrition; Z68.1 Body mass index [BMI] 19.9 or less, adult; R40.2363 Coma scale, best motor response, obeys commands, at hospital admission; R40.2143 Coma scale, eyes open, spontaneous, at hospital admission; R40.2243 Coma scale, best verbal response, confused conversation, at hospital admission